=== PATIENT | male | born 1985 | race American Indian/Alaskan Native ===

== ENCOUNTER 2018-10-02 01:41 | Emergency (ER) | payer SELFPAY ==
[2018-10-02 02:17] VITALS: BP 120/86
[2018-10-02 02:55] LABS: BUN/Creatinine Ratio 20; Blood Urea Nitrogen 12 mg/dL (9-20); Calcium 9.4 mg/dL (8.4-10.2); Hemolysis Index 9
[2018-10-02 03:13] LABS: Basophils % (Auto) 0.3 % (0.0-1.8); Eosinophils % (Auto) 0.2 % (0.0-4.3); Hematocrit 42.3 % (35.5-45.6); Hemoglobin 14.4 gm/dl (11.8-15.2); Lymphocytes # (Auto) 1.3 K/mm3 (1.2-5.4); Lymphocytes % (Auto) 15.6 % (13.4-35.0); Mean Corpuscular HGB Conc 34 % (32-34); Mean Corpuscular Volume 103 fl (84-94); Mean Platelet Volume 8.9 fl (6-12); Monocytes # (Auto) 0.5 K/mm3 (0.0-0.8); Monocytes % (Auto) 6.7 % (0.0-7.3); Platelet Count 178 K/mm3 (140-440); Red Blood Count 4.12 M/mm3 (3.65-5.03); Red Cell Distribution Width 12.5 % (13.2-15.2)
== END 2018-10-02 03:17 | disposition left against medical advice (07) ==
LOC: ED 01:41
DX: F41.9 Anxiety disorder, unspecified (principal); Z53.21 Procedure and treatment not carried out due to patient leaving prior to being seen by health care provider
CPT/HCPCS: 36415; 80048; 80320; 85025; 93005; 93010; G0480

== ENCOUNTER 2020-09-26 09:24 | Emergency (ER) | payer SELFPAY ==
[2020-09-26 09:31] VITALS: BP 140/80
--- NOTE | 2020-09-26 09:43 | Event Note ---
ED Screening Note Date of service: 09/26/20 Time: 09:41 ED Screening Note: 35-year-old -[place] male presents to the emergency room complaining of neck pain with stiffness and is worse in the morning when he gets up. Patient denies any injury denies any fever. 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 Patient does have a past medical history of bipolar depression anxiety and hypothyroidism This initial assessment/diagnostic orders/clinical plan/treatment(s) is/are subject to change based on patients health status, clinical progression and re- assessment by fellow clinical providers in the ED. Further treatment and workup at subsequent clinical providers discretion. Patient/guardian urged not to elope from the ED as their condition may be serious if not clinically assessed and managed. Initial orders include: CBC CMP.
[2020-09-26 09:57] LABS: Basophils % (Auto) 0.5 % (0.0-1.8); Eosinophils % (Auto) 0.4 % (0.0-4.3); Hematocrit 47.3 % (35.5-45.6); Hemoglobin 16.5 gm/dl (11.8-15.2); Lymphocytes # (Auto) 2.2 K/mm3 (1.2-5.4); Lymphocytes % (Auto) 41.9 % (13.4-35.0); Mean Corpuscular HGB Conc 35 % (32-34); Mean Corpuscular Volume 104 fl (84-94); Monocytes # (Auto) 0.3 K/mm3 (0.0-0.8); Monocytes % (Auto) 6.3 % (0.0-7.3); Platelet Count 174 K/mm3 (140-440); Red Blood Count 4.55 M/mm3 (3.65-5.03); Red Cell Distribution Width 12.6 % (13.2-15.2)
[2020-09-26 10:19] LABS: Alanine Aminotransferase 23 units/L (7-56); Albumin 4.6 g/dL (3.9-5); BUN/Creatinine Ratio 17; Blood Urea Nitrogen 12 mg/dL (9-20); Calcium 9.6 mg/dL (8.4-10.2); Hemolysis Index 8
--- NOTE | 2020-09-26 13:22 | Emergency Department Report ---
ED Neck Pain/Injury [facility] - General Chief Complaint: Neck Pain/Injury Stated Complaint: NECK PAIN X3DAYS Mode of arrival: Ambulatory Limitations: No Limitations - History of Present Illness Initial Comments: 35-year-old -[place] male presents to the emergency room complaining of neck pain with stiffness and is worse in the morning when he gets up. Patient denies any injury denies any fever. 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 Patient does have a past medical history of bipolar depression anxiety and hypothyroidism - Related Data Previous Rx's Medication Instructions Recorded Last Taken Type Baclofen [Lioresal] 10 mg PO TID #15 tab 09/26/20 Unknown Rx Ibuprofen [Motrin 800 MG tab] 800 mg PO Q8HR PRN #30 tablet 09/26/20 Unknown Rx Allergies Allergy/AdvReac Type Severity Reaction Status Date / Time No Known Allergies Allergy Verified 10/02/18 01:44 ED Review of Systems ROS: Stated complaint: NECK PAIN X3DAYS Other details as noted in HPI ED Past Medical Hx - Past Medical History Previous Medical History?: Yes Hx Psychiatric Treatment: Yes (bipolar, depression, anxiety) Additional medical history: hypothyroid - Surgical History Past Surgical History?: No - Social History Smoking Status: Current Every Day Smoker Substance Use Type: Alcohol, Marijuana - Medications Home Medications: Home Medications Medication Instructions Recorded Confirmed Last Taken Type Baclofen [Lioresal] 10 mg PO TID #15 tab 09/26/20 Unknown Rx Ibuprofen [Motrin 800 MG tab] 800 mg PO Q8HR PRN #30 tablet 09/26/20 Unknown Rx ED Physical Exam - General Limitations: No Limitations General appearance: alert, anxious - Head Head exam: Present: atraumatic, normocephalic - Eye Eye exam: Present: normal appearance - ENT ENT exam: Present: normal external ear exam - Neck Neck exam: Present: tenderness (Bilateral trapezius tenderness no cervical tenderness able to turn neck right and left.), full ROM - Respiratory Respiratory exam: Present: normal lung sounds bilaterally. Absent: respiratory distress, accessory muscle use - Cardiovascular Cardiovascular Exam: Present: regular rate, normal rhythm. Absent: systolic murmur, diastolic murmur, rubs, gallop - Back Exam Back exam: Present: normal inspection - Neurological Exam Neurological exam: Present: alert, oriented X3, normal gait - Psychiatric Psychiatric exam: Present: normal affect, agitated, anxious - Skin Skin exam: Present: warm, dry, intact, normal color. Absent: rash ED Course Vital Signs 09/26/20 09:29 Temperature 98.6 F Pulse Rate 66 Respiratory 18 Rate Blood Pressure 140/80 [Right] O2 Sat by Pulse 99 Oximetry ED Medical Decision Making - Lab Data Result diagrams: 09/26/20 09:43 09/26/20 09:43 Laboratory Tests 09/26/20 09/26/20 09:43 09:43 WBC 5.3 RBC 4.55 Hgb 16.5 H Hct 47.3 H MCV 104 H MCH 36 H MCHC 35 H RDW 12.6 L Plt Count 174 Lymph % (Auto) 41.9 H Marin % (Auto) 6.3 Eos % (Auto) 0.4 Baso % (Auto) 0.5 Lymph # (Auto) 2.2 [place] # (Auto) 0.3 Eos # (Auto) 0.0 Baso # (Auto) 0.0 Seg Neutrophils % 50.9 Seg Neutrophils # 2.7 Sodium 136 L Potassium 4.6 Chloride 103.5 Carbon Dioxide 23 Anion Gap 14 BUN 12 Creatinine 0.7 L Estimated GFR > 60 BUN/Creatinine Ratio 17 Glucose 99 Calcium 9.6 Total Bilirubin 1.40 H AST 20 ALT 23 Alkaline Phosphatase 93 Total Protein 6.9 Albumin 4.6 Albumin/Globulin Ratio 2.0 - Medical Decision Making 35-year-old -[place] male presents to the emergency room complaining of neck pain with stiffness and is worse in the morning when he gets up. Patient denies any injury denies any fever. 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 Patient does have a past medical history of bipolar depression anxiety and hypothyroidism Lab work is stable vital signs are stable. Month patient has musculoskeletal pain at the bilateral trapeze. Instructed patient he can take ibuprofen given a prescription for 800 mg and baclofen. Patient refused to sign paperwork and [facility] at the time of discharge he already has at medicine and refuses to sign his discharge paperwork. Patient left without discharge paperwork and prescriptions. Critical care attestation.: If time is entered above; I have spent that time in minutes in the direct care of this critically ill patient, excluding procedure time. ED Disposition Clinical Impression: Neck pain Disposition: DC- TO HOME OR SELFCARE Is pt being admited?: No Does the pt Need Aspirin: No Condition: Stable Instructions: Pain Without a Known Cause Additional Instructions: Labs are sable vital signs are stable. Take pain medication and muscle relaxant as proscribed. Follow up with a PCP. Prescriptions: Baclofen [Lioresal] 10 mg PO TID #15 tab Ibuprofen [Motrin 800 MG tab] 800 mg PO Q8HR PRN #30 tablet PRN Reason: Pain , Severe (7-10) Referrals: [facility] [Provider Group] - 3-5 Days Forms: Work/School Release Form(ED)
== END 2020-09-26 13:43 | disposition home or self-care (01) ==
LOC: ED 09:24
DX: M54.2 Cervicalgia (principal); F31.9 Bipolar disorder, unspecified; F41.9 Anxiety disorder, unspecified; E03.9 Hypothyroidism, unspecified; F17.200 Nicotine dependence, unspecified, uncomplicated; F12.90 Cannabis use, unspecified, uncomplicated; Z79.899 Other long term (current) drug therapy
CPT/HCPCS: 36415; 80053; 85025